=== PATIENT | male | born 1950 | race Caucasian/White ===

== ENCOUNTER 2018-10-14 11:01 | Emergency (ER) | payer MEDICARE, BC ==
[~2018-10-14] VITALS: Ht 177.8 cm; Wt 80.0 kg
[~2018-10-14 11:01] MED LIST: HYDR-4011 PO; IBUP-1561 PO
[2018-10-14 11:04] VITALS: Ht 177.8 cm; Wt 80.0 kg
--- NOTE | 2018-10-14 12:16 | ERD ---
ER Documentation Chief Complaint Chief Complaint r upper eyebrow/Lknee lac; nosebleed; s/p hit face on concrete; denies KO HPI 68-year-old male with Tradj[place], presents, complaining of multiple facial injuries, right wrist pain and left knee pain after sustaining a mechanical fall in his backyard approximately 1 hour prior to arrival. The patient denies any precipitating event like dizziness, chest pain, shortness of breath or weakness. ROS All systems reviewed and are negative except as per history of present illness. Medications Home Meds Active Scripts Hydrocodone/Acetaminophen ([place] 5-325 Tablet) 1 Each Tablet, 1 TAB PO BID PRN for PAIN, #10 TAB Prov:ROSALIO HINTON MD 10/14/18 Ibuprofen* (Motrin*) 400 Mg Tab, 400 MG PO Q6H PRN for PAIN AND OR ELEVATED TEMP, #30 TAB Prov:ROSALIO HINTON MD 10/14/18 Allergies Allergies: Coded Allergies: No Known Allergy (Unverified , 10/14/18) PMhx/Soc Medical and Surgical Hx: pt denies Medical Hx, pt denies Surgical Hx Hx Miscellaneous Medical Probl: Yes (Diabetes) Hx Alcohol Use: No Hx Substance Use: No Hx Tobacco Use: No Smoking Status: Never smoker FmHx Family History: diabetes Physical Exam Vitals Vital Signs Date Temp Pulse Resp B/P (MAP) Pulse Ox O2 O2 Flow FiO2 Time Delivery Rate 10/14/18 98.0 77 20 119/63 98 Room Air 13:57 (81) 10/14/18 97.7 74 20 126/56 98 11:04 (79) Physical Exam Const: No acute distress Head: Multiple facial abrasions on the right eyebrow and chin Eyes: Normal Conjunctiva ENT: Normal External Ears, Nose and Mouth. Neck: Full range of motion. No meningismus. Resp: Clear to auscultation bilaterally Cardio: Regular rate and rhythm, no murmurs Abd: Soft, non tender, non distended. Normal bowel sounds Skin: No petechiae or rashes Back: No midline or flank tenderness Ext: Right upper extremity: Tenderness and decreased range of motion in the wrist area, distal neurovascular exam intact, no cyanosis, or edema Neur: Awake and alert Psych: Normal Mood and Affect Results 24 hrs Current Medications Medications Dose Sig/Gretchen Start Time Status Last (Trade) Ordered Route PRN Stop Time Admin Dose Reason Admin 1 tab ONCE ONCE 10/14/18 DC 10/14/18 Acetaminophen PO 12:30 10/14/18 12:24 / 12:31 Hydrocodone Bitart ([place] (5/325)) Ibuprofen 600 mg ONCE ONCE 10/14/18 DC 10/14/18 (Motrin) PO 12:30 10/14/18 12:24 12:31 Patient: JUAN MEJIA : 1950 Age: 68 Sex: M MR #: [id number] DOS: 10/14/18 1232 Ordering MD: ROSALIO HINTON MD Location: [facility] Room/Bed: PROCEDURE: XR Hand. CLINICAL INDICATION: Trauma TECHNIQUE: AP oblique and lateral views of the right hand were obtained. COMPARISON: No prior studies are available for comparison. FINDINGS: The carpal rows, metacarpals and phalanges are normal with no fracture. There is soft tissue swelling surrounding the wrist. Noted is a nondisplaced comminuted Colles fracture of the distal radius with intra-articular extension and ulnar styloid fracture. IMPRESSION: Colles fracture right wrist with intra-articular extension. Normal hand. PROCEDURE: CT Brain without contrast. CLINICAL INDICATION: Trauma TECHNIQUE: A CT of the brain was performed on a multidetector CT scanner utilizing axial imaging from the skull base through the vertex without IV contrast. Multiplanar reformatted images were made. Images were reviewed on a PACS workstation. The CTDIvol is 39 mGy and the DLP is 634 mGycm. DICOM images are available. One or more of the following dose reduction techniques were utilized: 1.) Automated exposure control 2.) Adjustment of the mA +/- kV according to patient's size 3.) Use of iterative reconstruction technique. COMPARISON: None FINDINGS: There is no intracranial hemorrhage, mass effect, or midline shift. No extra- axial fluid collection is seen. There is mild to moderate diffuse cerebral volume loss with sulcal and ventricular dilatation. Ventricles are of normal configuration. Periventricular white matter disease is present in both cerebral hemispheres with no associated mass effect. the layton white matter differentiation appears well-preserved. The visualized paranasal sinuses and osseous structures are grossly unremarkable. No skull fracture is identified. There is right medial supraorbital soft tissue swelling with hematoma. IMPRESSION: No intracranial hemorrhage or skull fracture. Right supraorbital soft tissue swelling with hematoma. Mild to moderate atrophy. Mild white matter disease compatible with chronic small vessel ischemia. No mass or evidence of acute transcortical infarct. Procedures/MDM Differential diagnosis include but not limited to: Soft tissue contusion, sprain/strain, herniated disk, muscle spasm, fracture. Neurovascular exam grossly intact. Physical examination and clinical presentation consistent most likely with right wrist fracture and facial injuries with soft tissue contusion secondary to mechanical fall. During the ED course the patient remained stable, without complaints. Splint evaluation: Type: Colles splint Location: Right upper extremity Position: good alignment in anatomical position Neurovascular intact, soft compartments. The patient was told that elevating the injured part will help reduce pain and swelling. Ice packs can decrease pain and promote healing when applied in the first two days after an injury. The pack should be dry on the outside. Apply it for half an hour three to four times a day. Results and clinical impression discussed with patient who agrees with m moisegelincoln. The patient is stable to be treated outpatient and will be discharged home with recommendations and close monitoring The patient was instructed to follow up with the primary care provider in the next 48h. If symptoms persist, worsen or new symptoms develop, then patient should return to the ED immediately. Instructions explained and given to patient with acknowledgment and demonstrated understanding. Disclaimer: Inadvertent spelling and grammatical errors are likely due to EHR/dictation software use and do not reflect on the overall quality of patient care. Also, please note that the electronic time recorded on this note does not necessarily reflect the actual time of the patient encounter. Departure Diagnosis: Primary Impression: Acute head injury without loss of consciousness Additional Impressions: Facial contusion Fracture, Colles, right, closed Condition: Stable Additional Instructions: Thank you very much for allowing us to participate in your care. Your health and safety is our top priority at [facility]. The evaluation in the emergency department has been done to rule out an acute emergency. Chronic, [id number] conditions may have not been evaluated; therefore, you need to follow up with a primary care provider in the next 48h. If symptoms persist, worsen or new symptoms develop, then patient should return to the ED immediately. Call your primary care doctor TOMORROW for an appointment during the next 2-4 days and bring all the information provided. Have prescriptions filled and follow precisely the directions on the label. If the symptoms get worse and your provider is unavailable, return to the Emergency Department immediately. ROSALIO HINTON MD Oct 14, 2018 12:16
[2018-10-14] MEDS ORDERED: HYDROCODONE/APAP (5/325) TAB PO ONE (12:30)
[2018-10-14] MEDS ORDERED: IBUPROFEN 600 MG TAB PO ONE (12:30)
[2018-10-14 13:57] VITALS: BP 119/63; PULSE 77; RESP 20
== END 2018-10-14 14:00 | disposition home or self-care (01) ==
LOC: FTE 11:01
DX: S52.531A Colles' fracture of right radius, initial encounter for closed fracture (principal); E11.9 Type 2 diabetes mellitus without complications; S00.211A Abrasion of right eyelid and periocular area, initial encounter; S00.81XA Abrasion of other part of head, initial encounter; R94.02 Abnormal brain scan; W01.198A Fall on same level from slipping, tripping and stumbling with subsequent striking against other object, initial encounter; Y92.096 Garden or yard of other non-institutional residence as the place of occurrence of the external cause
CPT/HCPCS: 70450; 70486